=== PATIENT | male | born 1995 | race African-American/Black ===

== ENCOUNTER 2018-12-22 22:53 | Emergency (ER) | payer MEDICAID ==
[~2018-12-22] VITALS: Ht 175.3 cm; Wt 71.0 kg
[2018-12-22] MEDS ORDERED: IBUPROFEN 600MG TABLET PO ONE (23:45)
[2018-12-22] MEDS ORDERED: HYDROCODONE/ACETAMINOPHEN 5/325MG TABLET PO ONE (23:45)
[2018-12-23] MEDS ORDERED: HYDROCODONE/ACETAMINOPHEN 5/325MG TABLET PO ONE (02:00)
[2018-12-23 02:18] VITALS: BP 121/74
== END 2018-12-23 02:20 | disposition home or self-care (01) ==
LOC: ER 22:53
DX: M54.5 Low back pain (principal); M25.521 Pain in right elbow; M79.661 Pain in right lower leg; V03.99XA Pedestrian with other conveyance injured in collision with car, pick-up truck or van, unspecified whether traffic or nontraffic accident, initial encounter; Y93.55 Activity, bike riding; Y92.9 Unspecified place or not applicable
CPT/HCPCS: 72100; 73080; 73521; 73562; 73590; 73610; 99284

== ENCOUNTER 2019-11-27 06:36 | Emergency (ER) | payer MEDICAID ==
[~2019-11-27] VITALS: Ht 175.3 cm; Wt 64.0 kg
[2019-11-27] MEDS ORDERED: FLUORESCEIN SODIUM 1MG/STRIP RIGHTEYE ONE (07:00)
[2019-11-27] MEDS ORDERED: TETRACAINE 0.5% OPHTH DROPS 4ML RIGHTEYE ONE (07:00)
[2019-11-27] MEDS ORDERED: SODIUM CHLORIDE 0.9% 1,000 ML IV ONE (08:31)
[2019-11-27] MEDS ORDERED: MORPHINE SULFATE 4 MG/ML CPJ (NOT FOR IM USE) IV STA (08:31)
[2019-11-27] MEDS ORDERED: ONDANSETRON HCL 4MG/2ML INJ IV STA (08:31)
[2019-11-27 12:21] VITALS: BP 131/84
== END 2019-11-27 13:13 | disposition short-term general hospital (02) ==
LOC: ER 06:36
DX: S05.91XA Unspecified injury of right eye and orbit, initial encounter (principal); H21.01 Hyphema, right eye; H43.11 Vitreous hemorrhage, right eye; X95.02XA Assault by paintball gun discharge, initial encounter; Y93.9 Activity, unspecified; Y92.9 Unspecified place or not applicable
CPT/HCPCS: 70480; 96361; 96374; 96375; 99285; J2270; J2405; J7030; Z7610